=== PATIENT | female | born 1995 | race Caucasian/White ===

== ENCOUNTER 2020-04-11 00:17 | Inpatient (IN) | payer MEDICAID ==
[~2020-04-11] VITALS: Ht 157.5 cm; Wt 59.0 kg
[2020-04-11 01:15] LABS: BASOPHILS % 0.3 % (0.0-2.0); HEMOGLOBIN. 12.6 g/dL (12.0-16.0); LYMPHOCYTES % 14.1 % (20.0-50.0); MEAN CORPUSCULAR HEMOGLOBIN 28.8 pg (28.0-32.0); MEAN CORPUSCULAR VOLUME 82.5 fL (81.0-99.0); MEAN PLATELET VOLUME 9.1 fl (7.4-10.4); MONOCYTES % 3.8 % (2.0-8.0); NEUTROPHILS % 80.8 % (40.0-76.0); PLATELET 227 x1000/uL (130-400); RED BLOOD CELL COUNT 4.36 mill/uL (4.2-5.4); RED CELL DISTRIBUTION WIDTH 13.7 % (11.6-14.6)
[2020-04-11 01:19] LABS: CHLORIDE 107 mEq/L (98-107)
[2020-04-11 01:31] LABS: CLARITY URINE CLEAR (CLEAR); COLOR URINE YELLOW (YELLOW); KETONES URINE NEGATIVE (NEGATIVE); LEUKOCYTE ESTERASE URINE NEGATIVE (NEGATIVE); NITRITE URINE NEGATIVE (NEGATIVE); OCCULT BLOOD URINE NEGATIVE (NEGATIVE); PH URINE 8.5 (4.5-8.0); PROTEIN URINE NEGATIVE (NEGATIVE); SPECIFIC GRAVITY URINE 1.011 (1.005-1.030); UROBILINOGEN URINE 0.2 E.U./dL (0.2-1.0)
[2020-04-11 01:42] LABS: B-HCG QUANTITATIVE 1645 mIU/mL (<3)
[2020-04-11] MEDS ORDERED: MORPHINE SULFATE 4 MG/ML CPJ (NOT FOR IM USE) IV ONE (02:30)
[2020-04-11] MEDS ORDERED: LACTATED RINGERS 1,000 ML IV NR (03:45)
[2020-04-11] MEDS ORDERED: ROCURONIUM BROMIDE 10MG/ML VIAL 5ML IV ONE (05:03)
[2020-04-11] MEDS ORDERED: PROPOFOL 200MG/20ML VIAL IV ONE (05:03)
[2020-04-11] MEDS ORDERED: DEXAMETHASONE 4MG/ML 1ML VIAL ONE (05:07)
[2020-04-11] MEDS ORDERED: HYDROMORPHONE HCL/PF 2MG/ML (OR) ONE (05:17)
[2020-04-11] MEDS ORDERED: CEFAZOLIN SODIUM 1000MG/VIAL ONE (05:18)
[2020-04-11] MEDS ORDERED: MEPERIDINE HCL/PF 25MG/ML CPJ IV PRN (05:45)
[2020-04-11] MEDS ORDERED: LABETALOL 5MG/ML SYR 20 MG/4 ML SYRINGE IV PRN (05:45)
[2020-04-11] MEDS ORDERED: ONDANSETRON HCL 4MG/2ML INJ IV PRN ×2 (05:45→06:45)
[2020-04-11] MEDS ORDERED: MORPHINE SULFATE 2 MG/ML CPJ (NOT FOR IM USE) IV PRN (06:45)
[2020-04-11] MEDS ORDERED: HYDROCODONE/ACETAMINOPHEN 5/325MG TABLET PO PRN (06:45)
[2020-04-11] MEDS: HYDROMORPHONE HCL/PF 2MG/ML CPJ IV PRN ×3 (07:00→07:19)
[2020-04-11 12:00] VITALS: BP 96/54
[2020-04-11 12:09] VITALS: BP 112/57
[2020-04-11 16:00] VITALS: BP 121/61
[2020-04-11 20:00] VITALS: BP 96/57
[2020-04-12] VITALS (7 sets, daily range): BP systolic 87–110; BP diastolic 46–82
[2020-04-12] MEDS ORDERED: LACTATED RINGERS 1,000 ML IV SCH (04:45)
[2020-04-12 06:53] LABS: BASOPHILS % 0.2 % (0.0-2.0); EOSINOPHILS % 0.2 % (0.0-5.0); HEMATOCRIT. 32.6 % (36.0-48.0); HEMOGLOBIN. 11.3 g/dL (12.0-16.0); LYMPHOCYTES % 18.3 % (20.0-50.0); MEAN CORPUSCULAR VOLUME 83.3 fL (81.0-99.0); MEAN PLATELET VOLUME 9.6 fl (7.4-10.4); NEUTROPHILS % 75.3 % (40.0-76.0); PLATELET 201 x1000/uL (130-400); RED BLOOD CELL COUNT 3.91 mill/uL (4.2-5.4); RED CELL DISTRIBUTION WIDTH 13.9 % (11.6-14.6)
[2020-04-13] VITALS: BP 92/45
[2020-04-13 04:00] VITALS: BP 92/48
[2020-04-13 08:00] VITALS: BP 105/53
[2020-04-13 09:14] LABS: HEMATOCRIT 34.3 % (36.0-48.0); HEMOGLOBIN 11.9 g/dL (12.0-16.0); MEAN CORPUSCULAR HEMOGLOBIN 28.8 pg (28.0-32.0); MEAN CORPUSCULAR VOLUME 83.2 fL (81.0-99.0); PLATELET 202 x1000/uL (130-400); RED BLOOD CELL COUNT 4.12 mill/uL (4.2-5.4); RED CELL DISTRIBUTION WIDTH 13.6 % (11.6-14.6)
[2020-04-13 12:00] VITALS: BP 97/52
[2020-04-13 15:18] VITALS: BP 97/52
== END 2020-04-13 17:00 | disposition home or self-care (01) | DRG 546 ==
LOC: ER 00:17 → 6EST 03:42 → ENRESERV 07:35 → 6EST 09:01
PROVIDERS: ADMIT Obstetrics & Gynecology; ATTEND Obstetrics & Gynecology
PROC: 0UQ10ZZ Repair Left Ovary, Open Approach (ICD-10-PCS; principal; 2020-04-11)
PROC: 0W9G0ZZ Drainage of Peritoneal Cavity, Open Approach (ICD-10-PCS; 2020-04-11)
DX: O26.891 Other specified pregnancy related conditions, first trimester (principal); O34.81 Maternal care for other abnormalities of pelvic organs, first trimester; K66.1 Hemoperitoneum; N83.292 Other ovarian cyst, left side; Z3A.01 Less than 8 weeks gestation of pregnancy; Z20.822 Contact with and (suspected) exposure to COVID-19
CPT/HCPCS: 36415; 76801; 80053; 81003; 84702; 85025; 85027; 86850; 86900; 86920; 87426; 93005; 99291; J0690; J1100; J1170; J2175; J2270; J2405; J2704; J3490